=== PATIENT | male | born 1985 | race Caucasian/White ===

== ENCOUNTER 2020-06-20 11:27 | Emergency (ER) | payer OTHER ==
[2020-06-20] MEDS ORDERED: TETANUS & DIPHTHERIA TOX,ADULT 0.5 ML VIAL ONE (11:54)
--- NOTE | 2020-06-20 12:23 | RAD REPORT ---
EXAM DESCRIPTION: RAD - Forearm Left - 06/20/2020 12:10 pm CLINICAL HISTORY: Left forearm pain status post injury FINDINGS: Comminuted, impacted markedly displaced fracture distal radius Comminuted fracture ulnar styloid. No gross dislocation is seen
[2020-06-20] MEDS ORDERED: propofoL 1,000 MG/100 ML VIAL IV ONE (12:51)
[2020-06-20] MEDS ORDERED: propofoL 200 MG/20 ML VIAL IV ONE (12:54)
[2020-06-20] MEDS ORDERED: NA CHLORIDE 0.9% 1,000 ML ONE (13:27)
--- OUTSIDE RECORDS SUMMARY | 2020-06-20 13:47 | XMS REPORT | Continuity of Care Document ---
:1985 Author Organization [facility] Care Team Providers Name Role Phone retickr Unavailable Un available Problems Problem Status Onset Classification Date Comments Sourc e Date Reported Localization-re Active Problem 04/14/2020 Mis yomi lated 6 Neuro symptomatic epilepsy (disorder) Medications Medication Details Route Status Patient Ordering Order Source Instructions Provider Date lamotrigine = 1 tab, Active 03/15/20 [facility] 200 MG Oral PO, BID, # 20 Neuro Tablet 180 tab, 2 Refill(s), Pharmacy: [facility] #[id number], 167.64, cm, 03/15/20 15:24:00 CDT, Height, 96.364, kg, 03/15/20 15:24:00 CDT, Weight lamotrigine See Active 03/15/20 [facility] 200 MG Oral Instructio 19 Neuro Tablet ns, TAKE 1 TABLET BY MOUTH TWICE A DAY, # 180 tab, 2 Refill(s), Pharmacy: [facility] #[id number] Allergies, Adverse Reactions, Alerts Substance Category Reaction Severity Reaction Status Date Comments S ource type Reported No Known Assertion Drug Misch er Medication allergy Neuro Allergies Immunizations No Data Provided for This Section Results No Data Provided for This Section Pathology Reports No Data Provided for This Section Diagnostic Reports No Data Provided for This Section Consultation Notes No Data Provided for This Section Discharge Summaries No Data Provided for This Section History and Physicals No Data Provided for This Section Vital Signs Vital Sign Value Date Comments Source Systolic (mm Hg) 103 03/15/2020 [facility] Diastolic (mm Hg) 66 03/15/2020 [facility] Heart Rate 57 03/15/2020 [facility] Respitory Rate 16 03/15/2020 [facility] Height 167.64 cm 03/15/2020 [facility] Weight 96.364 03/15/2020 [facility] BMI Calculated 34.29 03/15/2020 [facility] BMI Calculated 8.05 03/15/2019 [facility] Height 177.8 cm 03/15/2019 [facility] Weight 25.455 03/15/2019 [facility] Neuro Respitory Rate 16 03/15/2019 [facility] Neuro Heart Rate 56 03/15/2019 [facility] Neuro Systolic (mm Hg) 112 03/15/2019 [facility] Will ro Diastolic (mm Hg) 70 03/15/2019 [facility] Ne uro Encounters Location Location Encounter Encounter Reason Attending ADM DE Stat us Source Details Type Number For Provider Date Date Visit Outpatient [id number] Bret 03/15 Active [facility] [place] [facility] Outpatient [id number] Bret 03/15 03/16 [facility] [place] [id number] Bret 03/15 Active [facility] [place] /2019 [place] Outpatient [id number] Bret 03/15 Active [facility] [place] /2019 [place] [facility] Ambulatory [id number] Bret 03/15 03/15 [facility] Neurology Pre-Reg [place] /2019 Neuro [place] [facility] Outpatient [id number] Bret 03/15 03/16 [facility] [place] /2019 Neuro [place] Outpatient [id number] Bret 04/11 Active [facility] [place] /2019 [place] [facility] Outpatient [id number] Bret 04/11 04/12 [facility] [place] /2019 Neuro [place] Outpatient [id number] Bret 06/18 Active [facility] [place] /2019 [place] Outpatient [id number] Bret 12/17 Active [facility] [place] Procedures No Data Provided for This Section Assessment and Plan No Data Provided for This Section Plan of Care No Data Provided for This Section Social History Social History Date Source Social History [facility]Response [facility] Smoking Status Never smoker; Exposure to Tobacco Smoke Unable to obtain; Cigarette Smoking Last 365 Days Unable to obtain; Reg Smoking Cessation Counseling No entered on: 03/15/20 Family History No Data Provided for This Section Advance Directives No Data Provided for This Section Functional Status No Data Provided for This Section
--- OUTSIDE RECORDS SUMMARY | 2020-06-20 13:47 | XMS REPORT | Summary of Care ---
:1985 Author Organization [facility] [place] Address [address] [place] [address]- Care Team Providers Name Role Phone Bret Sarah Primary Care Physician Encounter HQ Ita_autumn(FIN) [id number] Date(s): 04/11/20 - 04/11/20 [facility] [place] [address] [place] [address]- [phone] Discharge Disposition: Home or Self Care Attending Physician: Bret Sarah MD Referring Physician: Bret Sarah MD Vital Signs No data available for this section Problem List Condition Effective Dates Status Health Status Informant Localization-related (focal) (partial) 12/03/15 Active symptomatic epilepsy and epileptic syndromes with simple partial seizures, intractable, without status epilepticus(Confirmed) Allergies, Adverse Reactions, Alerts No Known Medication Allergies Medications No data available for this section Results No data available for this section Immunizations No data available for this section Procedures No data available for this section Social History Social History Type Response Smoking Status Never smoker; Exposure to To bacco Smoke Unable to obtain; Cigarette Smoking Last 365 Days Unable to obtain; Reg Smoking Cessation Counseling No entered on: 03/15/20 Assessment and Plan No data available for this section
--- NOTE | 2020-06-20 14:49 | RAD REPORT ---
EXAM DESCRIPTION: RAD - Forearm Left - 06/20/2020 2:34 pm CLINICAL HISTORY: postreduction Pain and swelling. COMPARISON: Forearm Left dated 06/20/2020 FINDINGS: Significantly impacted and mildly displaced distal radius fracture is present. No carpal d islocation. Ulnar styloid avulsion. Bone detail is limited a splint material.
--- NOTE | 2020-06-20 14:57 | ER ---
Nurse's Notes [facility] Name: Shon Egan II Age: 35 yrs Sex: Male : 1985 Arrival Date: 06/20/2020 Time: 11:29 Bed 13 Private MD: Diagnosis: Displaced comminuted fracture of shaft of radius, left arm-distal ;Ulnar Styloid Avulsion fracture - left arm Presentation: 06/20 11:34 Chief complaint: Tripped while running, c/o left wrist pain 04/08. Coronavirus screen: aa5 At this time, the client does not indicate any symptoms associated with coronavirus-19. Ebola Screen: No symptoms or risks identified at this time. Initial Sepsis Screen: Does the patient meet any 2 criteria? No. Patient's initial sepsis screen is negative. Does the patient have a suspected source of infection? No. Patient's initial sepsis screen is negative. Risk Assessment: Do you want to hurt yourself or someone else? Patient reports no desire to harm self or others. Onset of symptoms was June 20, 2020. 11:34 Method Of Arrival: Ambulatory aa5 11:34 Acuity: SHERIN 3 hb Historical: - Allergies: 11:36 No Known Allergies; aa5 - Home Meds: 11:36 Lamictal Oral [Active]; aa5 - PMHx: 11:36 Seizures; Autism; Bipolar disorder; aa5 - PSHx: 11:36 None; aa5 - Immunization history:: Adult Immunizations up to date. - Social history:: Smoking status: Patient denies any tobacco usage or history of. Screenin:44 Abuse screen: Denies threats or abuse. Denies injuries from another. Nutritional ca1 screening: No deficits noted. Tuberculosis screening: No symptoms or risk factors identified. Fall Risk Fall in past 12 months (25 points). Mental Status- Overestimates/Forgets Limitations (15 pts.). Total Hernandez Fall Scale indicates Low Risk Score (25-44 pts). Fall prevention measures have been instituted. Side Rails Up X 2 Family Present and informed to notify staff if they need to leave bedside As available Patient and Family Educated on Fall Prevention Program and strategies. Assessment: 11:44 General: Appears in no apparent distress. comfortable, Behavior is calm, cooperative. ca1 Pain: Complains of pain in left wrist. Neuro: Level of Consciousness is awake, alert, obeys commands, Oriented to person. Derm: Skin is intact, is healthy with good turgor, Skin is pink, warm \T\ dry. Musculoskeletal: Circulation, motion, and sensation intact. Capillary refill < 3 seconds, Range of motion: limited in left wrist. Injury Description: Abrasion sustained to left wrist was sustained less than 30 minutes ago. 12:45 Reassessment: Patient appears in no apparent distress at this time. No changes from ca1 previously documented assessment. Patient and/or family updated on plan of care and expected duration. Pain level reassessed. Patient is alert, oriented x 3, equal unlabored respirations, skin warm/dry/pink. 13:30 Reassessment: See chart for Conscious sedation Monitoring sheet. ca1 13:43 Reassessment: Patient appears in no apparent distress at this time. Patient is alert, ca1 oriented x 3, equal unlabored respirations, skin warm/dry/pink. 14:40 Reassessment: Patient appears in no apparent distress at this time. Patient and/or ca1 family updated on plan of care and expected duration. Pain level reassessed. Patient is alert, oriented x 3, equal unlabored respirations, skin warm/dry/pink. 15:34 Reassessment: Patient appears in no apparent distress at this time. Patient is alert, ca1 oriented x 3, equal unlabored respirations, skin warm/dry/pink. Vital Signs: 11:34 BP 112 / 68; Pulse 67; Resp 16; Temp 98.3; Pulse Ox 100% ; Weight 98.88 kg; Height 5 aa5 ft. 8 in. (172.72 cm); Pain 8/10; 12:45 BP 108 / 77; Pulse 74; Resp 20; Temp 97.2(TE); Pulse Ox 100% on R/A; ca1 13:39 BP 117 / 76; Pulse 73; Resp 20; Pulse Ox 100% on R/A; mh5 14:23 BP 115 / 81; Pulse 69; Resp 20 S; Pulse Ox 98% on R/A; ca1 15:34 BP 114 / 79; Pulse 71; Resp 16 S; Pulse Ox 98% on R/A; ca1 11:34 Body Mass Index 33.15 (98.88 kg, 172.72 cm) aa5 ED Course: 11:29 Patient arrived in ED. as 11:30 Jeanine Hogue FNP-C is [facility]. kb 11:30 Samuel Young MD is Attending Physician. kb 11:35 Triage completed. aa5 11:36 Arm band placed on. aa5 11:39 Lay Castro, RN is Primary Nurse. ca1 11:44 Patient has correct armband on for positive identification. Bed in low position. Call ca1 light in reach. Side rails up X 1. Adult w/ patient. Pulse ox on. NIBP on. 12:11 Forearm Left XRAY In Process Unspecified. EDMS 12:35 Inserted saline lock: 20 gauge in right hand, using aseptic technique. ca1 12:36 Consent for conscious sedation explained by physician, signed by guardian. ca1 13:33 Assist provider with reduction of left wrist using manipulation, Set up for procedure. ca1 Performed by Jeanine FINE Immobilized with Sugar Tong Splint Patient tolerated well. under Conscious Sedation. 13:38 Warm blanket given. 5 13:38 Orthoglass splint: Sugar tong splint applied on left arm. Sling applied to left arm. mh5 14:35 Forearm Left XRAY In Process Unspecified. EDMS 15:35 IV discontinued, intact, bleeding controlled, No redness/swelling at site. Pressure ca1 dressing applied. Administered Medications: 11:44 Drug: Tetanus-Diphtheria Toxoid Adult 0.5 ml {[employer]: [employer]. Exp: ca1 10/22/2022. Lot #: [id number]. } Route: IM; Site: right deltoid; 12:16 Follow up: Response: No adverse reaction ca1 13:20 Drug: Propofol 40 mg Route: IVP; Site: right hand; ca1 14:00 Follow up: Response: No adverse reaction ca1 13:21 Drug: Propofol 20 mg Route: IVP; Site: right hand; ca1 14:00 Follow up: Response: No adverse reaction ca1 13:23 Drug: Propofol 20 mg Route: IVP; Site: right hand; ca1 14:00 Follow up: Response: No adverse reaction ca1 Outcome: 14:56 Discharge ordered by . kb 15:35 Discharged to home via wheelchair, with family. ca1 15:35 Condition: stable 15:35 Discharge instructions given to patient, family, father Instructed on discharge instructions, follow up and referral plans. no drinking with medication, no driving heavy equipment, medication usage, Demonstrated understanding of instructions, follow-up care, medications, Prescriptions given X 1. 15:35 Patient left the ED. ca1 Signatures: Dispatcher [employer] EDJeanine Rea, BABATUNDE BROWNLEE-Adeola Askew Audri RN RN [facility] Sarah Chapman RN RN Jia Gusman [facility] Lay Castro RN RN ca1 Corrections: (The following items were deleted from the chart) 12:29 11:34 Acuity: SHERIN 4 aa5 13:42 13:33 Assist provider with reduction of left wrist using manipulation, Set up for ca1 procedure. Performed by Jeanine FINE Immobilized with Sugar Tong Splint Patient tolerated well. ca1
--- NOTE | 2020-06-20 14:57 | EDPHYS ---
Physician Documentation [facility] Name: Shon Egan II Age: 35 yrs Sex: Male : 1985 Arrival Date: 06/20/2020 Time: 11:29 Bed 13 Private MD: ED Physician Samuel Young HPI: 06/20 11:51 This 35 yrs old Male presents to ER via Ambulatory with complaints of Wrist kb Injury. 11:51 The patient or guardian reports decreased range of motion, pain, tenderness. The kb complaints affect the left wrist diffusely. Context: The problem was sustained outdoors, resulted from a fall, while running. Onset: The symptoms/episode began/occurred just prior to arrival. Modifying factors: The symptoms are alleviated by nothing, the symptoms are aggravated by movement. Associated signs and symptoms: The patient has no apparent associated signs or symptoms. The patient has not experienced similar symptoms in the past. The patient has not recently seen a physician. Pt [place] the [place] and [place]. Abrasion to left lateral knee, left forearm. Pain and decreased ROM of left forearm/wrist. Historical: - Allergies: 11:36 No Known Allergies; aa5 - Home Meds: 11:36 Lamictal Oral [Active]; aa5 - PMHx: 11:36 Seizures; Autism; Bipolar disorder; aa5 - PSHx: 11:36 None; aa5 - Immunization history:: Adult Immunizations up to date. - Social history:: Smoking status: Patient denies any tobacco usage or history of. ROS: 11:52 Constitutional: Negative for fever, chills, and weight loss, Cardiovascular: Negative kb for chest pain, palpitations, and edema, Respiratory: Negative for shortness of breath, cough, wheezing, and pleuritic chest pain, Abdomen/GI: Negative for abdominal pain, nausea, vomiting, diarrhea, and constipation, Back: Negative for injury and pain, Neuro: Negative for headache, weakness, numbness, tingling, and seizure. 11:52 MS/extremity: Positive for decreased range of motion, pain, swelling, of the left forearm. 11:52 Skin: Positive for abrasion(s), of the lateral aspect of left knee and left wrist. Exam: 11:53 Constitutional: This is a well developed, well nourished patient who is awake, alert, kb and in no acute distress. Head/Face: Normocephalic, atraumatic. Chest/axilla: Normal chest wall appearance and motion. Nontender with no deformity. No lesions are appreciated. Cardiovascular: Regular rate and rhythm with a normal S1 and S2. No gallops, murmurs, or rubs. Normal PMI, no JVD. No pulse deficits. Respiratory: Lungs have equal breath sounds bilaterally, clear to auscultation and percussion. No rales, rhonchi or wheezes noted. No increased work of breathing, no retractions or nasal flaring. Abdomen/GI: Soft, non-tender, with normal bowel sounds. No distension or tympany. No guarding or rebound. No evidence of tenderness throughout. Neuro: Awake and alert, GCS 15, oriented to person, place, time, and situation. Cranial nerves II-XII grossly intact. Motor strength 5/5 in all extremities. Sensory grossly intact. Cerebellar exam normal. Normal gait. 11:53 Musculoskeletal/extremity: Extremities: grossly normal except: noted in the left forearm: decreased ROM, pain, swelling, tenderness, ROM: limited active range of motion due to pain, in the left forearm, Circulation is intact in all extremities. Sensation intact. 11:53 Skin: injury, abrasion(s), small abrasion noted, of the lateral aspect of left knee and left wrist. Vital Signs: 11:34 BP 112 / 68; Pulse 67; Resp 16; Temp 98.3; Pulse Ox 100% ; Weight 98.88 kg; Height 5 aa5 ft. 8 in. (172.72 cm); Pain 8/10; 12:45 BP 108 / 77; Pulse 74; Resp 20; Temp 97.2(TE); Pulse Ox 100% on R/A; ca1 13:39 BP 117 / 76; Pulse 73; Resp 20; Pulse Ox 100% on R/A; mh5 14:23 BP 115 / 81; Pulse 69; Resp 20 S; Pulse Ox 98% on R/A; ca1 15:34 BP 114 / 79; Pulse 71; Resp 16 S; Pulse Ox 98% on R/A; ca1 11:34 Body Mass Index 33.15 (98.88 kg, 172.72 cm) aa5 Procedures: 14:45 Splinting: Splint applied to left forearm using Orthoglass splint, applied by tech. kb post reduction film - reveals improved alignment, Examined by me, post splint application: neurovascular intact, 2+ distal pulses palpable, brisk capillary refill noted, Patient tolerated well. Reduction: of the left wrist, using traction, Immobilized with orthoglass splint. Patient tolerated well. Post reduction film - reveals improved alignment. Moderate sedation: Pre-procedure assessment: Airway assessment: able to maintain airway, Monitoring during procedure: director cardiac, continuous pulse oximetry, nurse at bedside at all times, Medications employed: propofol, Post-procedure assessment: the patient is not sedated, Respiratory status: even and unlabored, a reversal agent was not used. MDM: 11:36 Patient medically screened. kb 11:53 Data reviewed: vital signs, nurses notes. Data interpreted: Pulse oximetry: on room air kb is 100 %. Interpretation: normal. 14:47 Counseling: I had a detailed discussion with the patient and/or guardian regarding: the kb historical points, exam findings, and any diagnostic results supporting the discharge/admit diagnosis, radiology results, the need for outpatient follow up, a orthopedic surgeon, to return to the emergency department if symptoms worsen or persist or if there are any questions or concerns that arise at home. 06/20 11:35 Order name: Forearm Left XRAY; Complete Time: 12:37 kb 06/20 13:30 Order name: Forearm Left XRAY; Complete Time: 14:53 kb 06/20 12:14 Order name: IV Start; Complete Time: 12:36 kb 06/20 12:14 Order name: Sugar Tong Forearm Splint; Complete Time: 13:37 kb 06/20 12:17 Order name: Conscious Sedation; Complete Time: 12:36 kb 06/20 13:37 Order name: Sling; Complete Time: 13:38 mh5 Administered Medications: 11:44 Drug: Tetanus-Diphtheria Toxoid Adult 0.5 ml {[employer]so: [employer]. Exp: ca1 10/22/2022. Lot #: [id number]. } Route: IM; Site: right deltoid; 12:16 Follow up: Response: No adverse reaction ca1 13:20 Drug: Propofol 40 mg Route: IVP; Site: right hand; ca1 14:00 Follow up: Response: No adverse reaction ca1 13:21 Drug: Propofol 20 mg Route: IVP; Site: right hand; ca1 14:00 Follow up: Response: No adverse reaction ca1 13:23 Drug: Propofol 20 mg Route: IVP; Site: right hand; ca1 14:00 Follow up: Response: No adverse reaction ca1 Disposition: 06/21 14:40 Co-signature as Attending Physician, Samuel Young MD I agree with the assessment and kdr plan of care. Disposition: 06/20/20 14:56 Discharged to Home. Impression: Displaced comminuted fracture of shaft of radius, left arm - distal , Ulnar Styloid Avulsion fracture - left arm. - Condition is Stable. - Discharge Instructions: Forearm Fracture, [id number]. - Prescriptions for Tylenol- Codeine #3 300-30 mg Oral Tablet - take 1 tablet by ORAL route every 6 hours As needed; 16 tablet. - Medication Reconciliation Form, Thank You Letter, Antibiotic Education, Prescription Opioid Use form. - Follow up: Emergency Department; When: As needed; Reason: Worsening of condition. Follow up: Private Physician; When: 2 - 3 days; Reason: Recheck today's complaints, Continuance of care, Re-evaluation by your physician. Signatures: Dispatcher [employer] EDMS Jeanine Hogue, THEATRICAL AGENT-C THEATRICAL AGENT-Ckb Samuel Young MD MD [facility] Danica Clark RN RN [id number] Jia Gusman 5 Lay Castro RN RN ca1 Corrections: (The following items were deleted from the chart) 06/20 15:35 14:56 06/20/2020 14:56 Discharged to Home. Impression: Displaced comminuted fracture of ca1 shaft of radius, left arm - distal ; Ulnar Styloid Avulsion fracture - left arm. Condition is Stable. Forms are Medication Reconciliation Form, Thank You Letter, Antibiotic Education, Prescription Opioid Use. Follow up: Emergency Department; When: As needed; Reason: Worsening of condition. Follow up: Private Physician; When: 2 - 3 days; Reason: Recheck today's complaints, Continuance of care, Re-evaluation by your physician. kb
[2020-06-20 15:52] VITALS: TEMP 97.2
[2020-06-20 15:55] VITALS: O2SAT 98
[2020-06-20 15:57] VITALS: BP 114/79
== END 2020-06-20 15:35 | disposition home or self-care (01) ==
LOC: ER 11:27
PROC: 0PSJXZZ Reposition Left Radius, External Approach (ICD-10-PCS; principal; 2020-06-20)
PROC: 0PSLXZZ Reposition Left Ulna, External Approach (ICD-10-PCS; 2020-06-20)
DX: S52.352A Displaced comminuted fracture of shaft of radius, left arm, initial encounter for closed fracture (principal); S52.612A Displaced fracture of left ulna styloid process, initial encounter for closed fracture; S80.212A Abrasion, left knee, initial encounter; W18.30XA Fall on same level, unspecified, initial encounter; Y93.02 Activity, running; Y92.89 Other specified places as the place of occurrence of the external cause; Z23 Encounter for immunization
CPT/HCPCS: 73090 ×2; 90471; 90714; 96374; 99285; 25415; J2704; J7030